=== PATIENT | female | born 1955 | race Caucasian/White ===

== ENCOUNTER 2017-02-18 10:26 | Inpatient (IN) ==
[2017-02-11 13:12] LABS: Appearance,Urine CLEAR; Bilirubin,Urine NEG (NEG); Color,Urine YELLOW; Glucose,Urine (UA) NEGATIVE (NEG); Leukocyte Esterase,Urine NEG /uL (NEG); Nitrate,Urine NEG (NEG); Protein,Urine NEG (NEG); Specific Gravity,Urine 1.016 (1.000-1.035); Urine Blood NEG mg/dL (<0.03); Urobilinogen,Urine NEG (NEG)
[2017-02-11 14:02] LABS: Basophils # (Auto) 0 K/mcL (0.0-0.3); Basophils % (Auto) 0.3 % (0.0-2.0); Eosinophils # (Auto) 0.2 K/mcL (0.0-0.7); Eosinophils % (Auto) 3.8 % (0.0-7.0); Granulocytes % (Auto) 62.5 % (38.0-78.0); Lymphocytes # (Auto) 1.4 K/mcL (1.5-4.8); Lymphocytes % (Auto) 26.5 % (15.5-49.0); Mean Cell Volume 94.5 fL (80.0-100.0); Mean Corpuscular HGB Conc 34.4 g/dL (31.0-36.0); Mean Corpuscular Hemoglobin 32.5 pg (26.0-34.0); Monocytes # (Auto) 0.4 K/mcL (0.1-0.9); Monocytes % (Auto) 6.9 % (1.0-12.0); Platelet Count 239 K/mcL (140-440); RBC 4.31 M/mcL (4.00-5.20); Red Cell Distribution Width 13.2 % (11.5-14.5)
[2017-02-11 14:10] LABS: Blood Urea Nitrogen 14 mg/dl (8-23)
[~2017-02-18 10:26] MED LIST: CELECOXIB 200 MG CAPSULE PO SCH; KETOROLAC 30 MG, ROPIVACAINE HCL/PF 49.5 ML, EPINEPHrine 0.5 MG, 0.9 % SODIUM CHLORIDE ... IJ ONE; PREGABALIN 75 MG CAPSULE PO SCH; ceFAZolin 1 GM VIAL IV SCH; oxyCODONE 10 MG TAB.ER.12H PO SCH
[2017-02-18] MEDS ORDERED: GENTAMICIN SULFATE 800 MG/20 ML VIAL IR ONE (15:57)
[2017-02-18] MEDS ORDERED: GLYCOPYRROLATE 0.2 MG/ML VIAL IV ONE (16:15)
[2017-02-18] MEDS ORDERED: ePHEDrine 50 MG/ML AMPUL IV ONE (16:15)
[2017-02-18] MEDS ORDERED: PROPOFOL 200 MG/20 ML VIAL IV ONE (16:15)
[2017-02-18] MEDS ORDERED: BUPIVACAINE PF 0.5% 30 ML VIAL IJ ONE (16:15)
[2017-02-18] MEDS ORDERED: ONDANSETRON 4 MG/2 ML VIAL IV ONE (16:15)
[2017-02-18] MEDS ORDERED: TRANEXAMIC ACID 1,000 MG/10 ML VIAL IV ONE ×2 (16:15→18:02)
[2017-02-18] MEDS ORDERED: DEXAMETHASONE 10 MG/ML VIAL IV ONE (16:15)
[2017-02-18] MEDS ORDERED: LIDOCAINE HCL/PF 100 MG/5 ML SYRINGE IV ONE (16:15)
[2017-02-18] MEDS ORDERED: MIDAZOLAM 2 MG/2 ML VIAL IV ONE (16:15)
[2017-02-18] MEDS ORDERED: ONDANSETRON ODT 4 MG TABLET SL PRN (18:02)
[2017-02-18] MEDS ORDERED: BISACODYL 10 MG SUPP.RECT PR PRN (18:02)
[2017-02-18] MEDS ORDERED: FLEETS ADULT ENEMA PR PRN (18:02)
[2017-02-18] MEDS ORDERED: HYDROmorphone 2 MG/ML SYRINGE IV PRN (18:02)
[2017-02-18] MEDS ORDERED: MAGNESIUM HYDROXIDE 30 ML ORAL.SUSP PO PRN (18:02)
[2017-02-18] MEDS ORDERED: ACETAMINOPHEN 325 MG TABLET PO PRN (18:02)
[2017-02-18] MEDS ORDERED: BENZOCAINE/MENTHOL 1 LOZENGE PO PRN (18:02)
[2017-02-18] MEDS ORDERED: POLYETHYLENE GLYCOL 3350 17 GM PACKET PO PRN (18:02)
[2017-02-18] MEDS ORDERED: METHOCARBAMOL 750 MG TABLET PO PRN (18:02)
[2017-02-18] MEDS ORDERED: HYDROcodone/APAP 10/325MG TABLET PO PRN (18:02)
[2017-02-18] MEDS ORDERED: ONDANSETRON 4 MG/2 ML VIAL IV PRN ×2 (18:02→18:25)
--- NOTE | 2017-02-18 18:02 | Brief Operative Note ---
Date of procedure: 02/18/17 Pre-op diagnosis: left knee oa Post-op diagnosis: same Procedure: left total knee arthroplasty Grafts/Implants: Yes Anesthesia: spinal Complications: none Surgeon: Shay Benavidez Marketing Professor: Laura White Estimated blood loss (cc): 150 Tourniquet Time (Minutes): 62 Specimens Removed/Pathology: none sent Condition: stable Disposition: PACU
[2017-02-18] MEDS ORDERED: fentaNYL 100 MCG/2 ML VIAL IV PRN (18:25)
[2017-02-18] MEDS ORDERED: IPRATROPIUM/ALBUTEROL 3 ML AMPUL.NEB NEB PRN (18:25)
[2017-02-18] MEDS ORDERED: METHOCARBAMOL 1,000 MG/10 ML VIAL IV PRN (18:25)
[2017-02-18] MEDS ORDERED: ATROPINE SULFATE 0.4 MG/ML VIAL IV PRN (18:25)
[2017-02-18] MEDS ORDERED: METOPROLOL TARTRATE 5 MG/5 ML VIAL IV PRN (18:25)
[2017-02-18] MEDS ORDERED: ACETAMINOPHEN 1,000 MG/100 ML BOTTLE IV ONE (18:25)
[2017-02-18] MEDS ORDERED: FLUMAZENIL 0.1 MG/ML ML IV PRN (18:25)
[2017-02-18] MEDS ORDERED: LABETALOL 5 MG/ML ML IV PRN (18:25)
[2017-02-18] MEDS ORDERED: ePHEDrine 50 MG/ML AMPUL IV PRN (18:25)
[2017-02-18] MEDS ORDERED: NALOXONE HCL 0.4 MG/ML VIAL IV PRN (18:25)
[2017-02-18] MEDS ORDERED: diphenhydrAMINE 50 MG/ML VIAL IV PRN (18:25)
[2017-02-18] MEDS ORDERED: LACTATED RINGERS 1,000 ML IV SCH (18:30)
[2017-02-18] MEDS: 0.9 % SODIUM CHLORIDE 1,000 ML IV SCH ×2 (19:32→19:33)
[2017-02-18] MEDS ORDERED: SENNOSIDES 1 TABLET PO SCH (21:00)
[2017-02-18] MEDS: ceFAZolin 1 GM VIAL IV SCH (21:30)
[2017-02-18] MEDS: DOCUSATE SODIUM 100 MG CAPSULE PO SCH (21:30)
[2017-02-18] MEDS: ASPIRIN 325 MG ENTERIC COATED TABLET PO SCH (21:30)
[2017-02-18] MEDS: 0.9 % SODIUM CHLORIDE 10 ML SYRINGE IV SCH (21:30)
[2017-02-18] MEDS: KETOROLAC 15 MG/ML VIAL IV SCH (23:31)
[2017-02-19] MEDS: 0.9 % SODIUM CHLORIDE 1,000 ML IV SCH ×2 (04:11→04:30)
[2017-02-19] MEDS: KETOROLAC 15 MG/ML VIAL IV SCH (06:27)
[2017-02-19] MEDS: 0.9 % SODIUM CHLORIDE 10 ML SYRINGE IV SCH (06:27)
[2017-02-19] MEDS: ceFAZolin 1 GM VIAL IV SCH (06:27)
--- NOTE | 2017-02-19 06:28 | XRay Report ---
CLINICAL INFORMATION: Post-Op Total Knee COMPARISON: None. FINDINGS: Total knee prostheses is anatomically aligned. No osseous abnormality. Periarticular gas and soft tissue swelling seen. IMPRESSION: Negative Interpreted and Authenticated by: Shay Meyer 02/19/17
--- NOTE | 2017-02-19 07:07 | Discharge Summary ---
Providers - Providers Patient information: Note initiated : 02/19/17 at 7:05 am Service Date, if different from initiated Date: [] Patient: Mandy Mayfield 61 y/o F admitted on 02/18/17 for Total Knee Arthroplasty - Left. Chief Complaint: [POD #1 s/p left TKA Patient doing very well. Ambulating okay. Denies numbness, tingling, calf pain, SOB or CP. Has no questions or concerns this morning.] Discharge date: 02/19/17 Hospitalization Hospital course: Patient was brought to the OR 02/18/17 for a left TKA. Operation was successful without events. She was admitted overnight for pain control and observation. She will discharge to home today and follow up in office in 2 weeks for postop appointment. Discharge diagnosis: knee osteoarthritis Exam - Exam Incision healing: Yes Incision draining: No Incision red: No Incision swollen: No Incision inflamed: No Clean and dry: Yes Weight bearing status: as tolerated (with assistive device) Range of motion: 0/50deg knee ROM. Ankles/feet b/l full AROM and strength. Ortho Discharge - TKA - Patient Instructions Diet: Regular Diet Activity: activity as tolerated, ambulate with assistive device, weight bearing as tolerated Total Knee Protocol: For Total Knee: Start ROM GAGE with stationary bike or rocking chair. Work on gaining full extension of knee. Posterior dislocation precautions provided. Hip abductor strengthening and gait training instructions provided. Apply Cryocuff as instructed. Dressing Care: May shower in 2 days, Aquacel Ag - leave on for 5 days - Follow Up Plan Follow Up Appointments: Shay Benavidez MD [Physician] - Disposition: Home, Self-Care Prognosis: Fair Rehab Potential: Fair Overall status at discharge: patient is progressing back to baseline - Orders For Discharge Prescriptions: Aspirin [Ecotrin] 325 mg PO BID #60 tab.ec HYDROcodone/APAP 10/325MG [[place] 10/325Mg] 1 - 2 tab PO Q4HP PRN #60 tab PRN Reason: Pain Level 3-6 Additional Discharge Orders: Physical Therapy at Discharge - TKA Location: Determined By Patient Walker Location: Determined By Patient Pending Studies Resuscitation Status Full Code Diet Regular Diet Start FriFeb 18 Dinner Aspirin (Ecotrin) 325 mg PO BID BEENA Last Admin: 02/18/17 21:30 Dose: 325 mg Docusate Sodium (Colace) 100 mg PO BID [facility] Last Admin: 02/18/17 21:30 Dose: 100 mg Hydromorphone HCl (Dilaudid) 0 mg IV Q2HP PRN PRN Reason: PAIN LEVEL > 6 Last Admin: 02/18/17 22:54 Dose: 0.5 mg Sodium Chloride (Sodium Chloride 0.9%) 1,000 mls @ 125 mls/hr IV .Q8H [facility] Last Admin: 02/19/17 04:30 Dose: 125 mls/hr Infusion: 02/19/17 03:32 Dose: 125 mls/hr Admin: 02/18/17 19:33 Dose: Admin: 02/18/17 19:32 Dose: 125 mls/hr Ketorolac Tromethamine (Toradol) 15 mg IV Q6 [facility] Stop: 02/20/17 18:01 Last Admin: 02/19/17 06:27 Dose: 15 mg Admin: 02/18/17 23:31 Dose: 15 mg Senna (Senokot) 2 tab PO HS [facility] Last Admin: 02/18/17 21:30 Dose: 2 tab Sodium Chloride (Saline Flush) 10 ml IV Q8 [facility] Last Admin: 02/19/17 06:27 Dose: 10 ml Admin: 02/18/17 21:30 Dose: 10 ml Shift Summary 02/19/17 04:00 Shift Summary by Cyn Garces A&O. Hx of HTN, arthritis, GERD. Returned to floor at about 1900. Dressing to L knee CDI. The RACHELE wrap was changed after patient was incontinent of urine, afterwards she voided 150ml w/ PVR of <30ml. Has been voiding 50-150ml (but has also been missing the hat) w/ PVRs of <30ml each time. Has been incontinent of urine x2 tonight. Patient reports she does have a hx of incontinence but typically only when she sneezes/coughs or after she takes her diuretic. Patient allergic to codeine. Gave 0.5mg dilaudid x1 for 6/10 pain with good results. IV in L wrist SL. VSS on 2L via NC. Pleasant and cooperative with all cares. Initialized on 02/19/17 04:00 - END OF NOTE Exam Vital signs: Temp Pulse Resp BP Pulse Ox 97.5 F 92 H 12 138/76 94 02/19/17 04:00 02/19/17 04:00 02/19/17 04:00 02/19/17 04:00 02/19/17 04:00 Constitutional: well developed, well nourished, no acute distress Respiratory: no intercostal retractions or use of accessory muscles Cardiovascular: other (DP/PT pulses 2+ b/l. Cap refill < 3 sec b/l. ) Skin: other (dressing CDI without drainage/erythema) Neurologic: sensation intact to touch, other (b/l LE NVI)
--- NOTE | 2017-02-19 07:08 | Operative Note ---
DATE OF OPERATION: 02/18/2017 PREOPERATIVE DIAGNOSIS: Degenerative joint disease, left knee. POSTOPERATIVE DIAGNOSIS: Degenerative joint disease, left knee. PROCEDURE: Left total knee arthroplasty. SURGEON: Luci Benavidez M.D. PLANT TECHNICIAN/CONTROL ROOM OPERATOR SURGEON: Laura White PA-C ANESTHESIA: Spinal with LMA assist. ESTIMATED BLOOD LOSS: 150 mL COMPLICATIONS: None noted. SPECIMENS REMOVED: None. DRAINS: None. TOURNIQUET TIME: 62 minutes at 250 mmHg IMPLANTS: DePuy CMW2 bone cement x4, 20 grams; DePuy Attune femoral posterior stabilized size 5 left cemented; DePuy Attune tibial insert fixed bearing posterior stabilized size 5, 10 mm AOX; DePuy Attune tibial based fixed bearing size 4 cemented; DePuy Attune patella medialized dome 35 mm cemented AOX. INDICATIONS: The patient has had a long-standing history of worsening pain in the knee that has failed conservative treatment. Radiographs have confirmed advanced degenerative joint disease. After a long discussion about treatment options, the patient elected to proceed with a knee arthroplasty. The risks and benefits were discussed with the patient in detail including, but not limited to, the risks of anesthesia, problems with the heart or lungs related to anesthesia, infection, compromise or injury to the nerves and blood vessels, deep venous thrombosis, pulmonary embolism, pneumonia, continued pain after surgery, worsening pain or symptoms after surgery, swelling, loss of motion, instability, leg length discrepancy, and need for repeat surgery. DESCRIPTION OF PROCEDURE: The patient was seen in the pre-anesthesia waiting room where all questions were answered and the correct side and site were identified and marked. The patient was transferred to the operating room and administered the anesthetic and given pre-operative antibiotics. A time-out was then called. The extremity was prepped and draped, exsanguinated, and the tourniquet was inflated to 300 mmHg. A midline skin incision was then made with a standard medial parapatellar arthrotomy. Debridement of the menisci, ACL, and PCL was performed followed by balancing releases in the medial lateral plane. We then established intramedullary access to both the femur and tibia in a standard fashion. The femoral guide ashish was initially placed with the distal femoral guide, pinned into place, and the distal femoral cut was performed and checked with a flat plate. We then turned our attention to the tibia. The intramedullary guide was placed with the proximal tibial cutting block. The block was appropriately positioned off the affected side, varus and valgus was checked with the extra-medullary guide, and the block was pinned into place. The proximal tibial cut was performed and the tibia was prepared for the tibial implant with appropriate rotation. The tibia, femur, and posterior compartment were debrided of osteophytes, loose bodies, and meniscal fragments We then used the gap balancing technique to balance extension with the first two cuts and good balancing was obtained with a 10 millimeter gap block. We turned our attention back to the femur and used the referencing block and implant to size appropriately. Using the gap balancing technique for the flexion space we set our rotation of the femur off the tibial cut. Anesthesia gave the patient 1 gram of Tranexamic Acid via an intravenous route. We placed the 4 in 1 cutting block and made anterior, posterior, and chamfer cuts. Box plasty cuts were then made in a standard fashion for the posterior stabilized prosthesis. We then completed osteophyte release and posterior capsule release from the posterior compartment. Trials were placed and we chose the polyethylene insert thickness that provided the best stability in all planes. With the trials in place, we did a measured resection for a resurfacing patella. We sized the patella and placed the patella trial and performed a lateral facetectomy with the saw and rongeur. Good tracking was obtained. We removed all trials, irrigated and dried all cut surfaces. We cemented the components into place including tibia, femur and patella. We placed a trial liner and held the knee in full extension with the patella compressed while the cement cured. We then removed all excess cement and placed the final polyethylene tibiofemoral component. Irrigation with 3 liters of antibiotic saline was then performed using jet-lavage. We let the tourniquet down and coagulated bleeding vessels. We injected a 100 cubic centimeter volume including Ropivacaine 49.25 cubic centimeters at 5 milligrams per cubic centimeter, Ketorolac 30 milligrams, and Epinephrine 0.5 milligrams into 100 cubic centimeters volume of normal saline. We closed the retinaculum with looped #2 Stratafix. We closed the subcutaneous tissue and skin in layers out to luba in the skin. A sterile pressure dressing was applied. All needle and sponge counts were correct. The patient was transferred to the recovery room in stable condition. MISHEL:beka Job ID: [id number] Doc ID: [id number] Luci Benavidez MD
[2017-02-19] MEDS ORDERED: LEVOTHYROXINE 25 MCG TABLET PO SCH (07:30)
[2017-02-19] MEDS ORDERED: LEVOTHYROXINE SODIUM 112 MCG TABLET PO SCH (07:30)
[2017-02-19] MEDS: ASPIRIN 325 MG ENTERIC COATED TABLET PO SCH (08:30)
[2017-02-19] MEDS: DOCUSATE SODIUM 100 MG CAPSULE PO SCH (08:30)
[2017-02-19] MEDS ORDERED: SPIRONOLACTONE 25 MG TABLET PO SCH (09:00)
[2017-02-19] MEDS ORDERED: LOSARTAN 50 MG TABLET PO SCH (09:00)
[2017-02-19] MEDS ORDERED: FENOFIBRATE 43 MG CAPSULE PO SCH (09:00)
[2017-02-19] MEDS ORDERED: FLU VACC QS2017-18 36MOS UP/PF 60 MCG/0.5 ML SYRINGE IM ONE (10:00)
== END 2017-02-19 11:24 | disposition home or self-care (01) | DRG 470 ==
LOC: MEDSUR 10:26
PROVIDERS: ADMIT Orthopaedic Surgery Sports Medicine; ATTEND Orthopaedic Surgery Sports Medicine

== ENCOUNTER 2018-01-20 06:54 | Inpatient (IN) ==
[2018-01-13 15:03] LABS: Appearance,Urine CLEAR; Bilirubin,Urine NEG (NEG); Color,Urine YELLOW; Glucose,Urine (UA) NEGATIVE (NEG); Leukocyte Esterase,Urine NEG /uL (NEG); Protein,Urine NEG (NEG); Specific Gravity,Urine 1.023 (1.000-1.035); Urine Blood NEG mg/dL (<0.03); Urobilinogen,Urine NEG (NEG)
[2018-01-13 16:02] LABS: Basophils # (Auto) 0 K/mcL (0.0-0.3); Basophils % (Auto) 0.4 % (0.0-2.0); Eosinophils # (Auto) 0.2 K/mcL (0.0-0.7); Eosinophils % (Auto) 2.7 % (0.0-7.0); Granulocytes % (Auto) 64.4 % (38.0-78.0); Lymphocytes # (Auto) 1.5 K/mcL (1.5-4.8); Lymphocytes % (Auto) 25.1 % (15.5-49.0); Mean Cell Volume 96.2 fL (80.0-100.0); Mean Corpuscular HGB Conc 33.8 g/dL (31.0-36.0); Mean Corpuscular Hemoglobin 32.5 pg (26.0-34.0); Monocytes # (Auto) 0.5 K/mcL (0.1-0.9); Monocytes % (Auto) 7.4 % (1.0-12.0); Platelet Count 289 K/mcL (140-440); RBC 4.17 M/mcL (4.00-5.20); Red Cell Distribution Width 12.9 % (11.5-14.5)
[2018-01-13 16:11] LABS: Blood Urea Nitrogen 19 mg/dl (8-23)
[2018-01-20] MEDS ORDERED: oxyCODONE 10 MG TAB.ER.12H PO SCH (07:00)
[2018-01-20] MEDS ORDERED: CELECOXIB 200 MG CAPSULE PO SCH (07:00)
[2018-01-20] MEDS ORDERED: PREGABALIN 75 MG CAPSULE PO SCH (07:00)
[2018-01-20] MEDS ORDERED: ceFAZolin 1 GM VIAL IV SCH (07:00)
[2018-01-20] MEDS ORDERED: 0.9 % SODIUM CHLORIDE 9 ML, KETOROLAC 30 MG, ROPIVACAINE HCL/PF 49.5 ML, EPINEPHrine 0.... IJ SCH (07:00)
[2018-01-20] MEDS ORDERED: ROPIVACAINE HCL/PF 20 ML VIAL IJ ONE (09:25)
[2018-01-20] MEDS ORDERED: ONDANSETRON 4 MG/2 ML VIAL IV ONE (09:25)
[2018-01-20] MEDS ORDERED: LIDOCAINE HCL/PF 100 MG/5 ML SYRINGE IV ONE (09:25)
[2018-01-20] MEDS ORDERED: ePHEDrine 50 MG/ML AMPUL IV ONE (09:25)
[2018-01-20] MEDS ORDERED: PROPOFOL 200 MG/20 ML VIAL IV ONE (09:25)
[2018-01-20] MEDS ORDERED: TRANEXAMIC ACID 1,000 MG/10 ML VIAL IV ONE (09:25)
[2018-01-20] MEDS ORDERED: DEXAMETHASONE 10 MG/ML VIAL IV ONE (09:25)
[2018-01-20] MEDS ORDERED: MIDAZOLAM 5 MG/5 ML VIAL IV ONE (09:25)
[2018-01-20] MEDS ORDERED: GENTAMICIN SULFATE 800 MG/20 ML VIAL IR ONE (09:54)
[2018-01-20] MEDS ORDERED: PROMETHAZINE 25 MG/ML VIAL IV PRN (10:49)
[2018-01-20] MEDS ORDERED: MEPERIDINE 25 MG/ML SYRINGE IV PRN (10:49)
[2018-01-20] MEDS ORDERED: ONDANSETRON 4 MG/2 ML VIAL IV PRN ×2 (10:49→10:57)
[2018-01-20] MEDS ORDERED: fentaNYL 100 MCG/2 ML VIAL IV PRN (10:49)
[2018-01-20] MEDS ORDERED: ACETAMINOPHEN 1,000 MG/100 ML BOTTLE IV ONE (10:49)
[2018-01-20] MEDS ORDERED: LACTATED RINGERS 250 ML IV PRN (10:49)
[2018-01-20] MEDS ORDERED: IPRATROPIUM/ALBUTEROL 3 ML AMPUL.NEB NEB PRN (10:49)
[2018-01-20] MEDS ORDERED: diphenhydrAMINE 50 MG/ML VIAL IV PRN (10:49)
[2018-01-20] MEDS ORDERED: BENZOCAINE/MENTHOL 1 LOZENGE PO PRN ×2 (10:49→10:57)
[2018-01-20] MEDS ORDERED: FLUMAZENIL 0.1 MG/ML ML IV PRN (10:49)
[2018-01-20] MEDS ORDERED: NALOXONE HCL 0.4 MG/ML VIAL IV PRN (10:49)
--- NOTE | 2018-01-20 10:56 | Brief Operative Note ---
Date of procedure: 01/20/18 Pre-op diagnosis: right knee osteoarthritis Post-op diagnosis: same Procedure: right total knee arthroplasty Grafts/Implants: Yes Anesthesia: spinal Complications: none Surgeon: Shay Benavidez Chef'S Assistant: Laura White Estimated blood loss (cc): 150 Tourniquet Time (Minutes): 56 Specimens Removed/Pathology: none sent Condition: stable Disposition: PACU
[2018-01-20] MEDS ORDERED: ONDANSETRON ODT 4 MG TABLET SL PRN (10:57)
[2018-01-20] MEDS ORDERED: POLYETHYLENE GLYCOL 3350 17 GM PACKET PO PRN (10:57)
[2018-01-20] MEDS ORDERED: BISACODYL 10 MG SUPP.RECT PR PRN (10:57)
[2018-01-20] MEDS ORDERED: ACETAMINOPHEN 325 MG TABLET PO PRN (10:57)
[2018-01-20] MEDS ORDERED: MAGNESIUM HYDROXIDE 30 ML ORAL.SUSP PO PRN (10:57)
[2018-01-20] MEDS ORDERED: TRANEXAMIC ACID 1,000 MG/10 ML VIAL IV SCH (10:57)
[2018-01-20] MEDS ORDERED: FLEETS ADULT ENEMA PR PRN (10:57)
[2018-01-20] MEDS ORDERED: METHOCARBAMOL 750 MG TABLET PO PRN (10:57)
[2018-01-20] MEDS ORDERED: LACTATED RINGERS 1,000 ML IV SCH (11:00)
--- NOTE | 2018-01-20 11:23 | Operative Note ---
DATE OF OPERATION: 01/20/2018 PREOPERATIVE DIAGNOSIS: Degenerative joint disease, right knee. POSTOPERATIVE DIAGNOSIS: Degenerative joint disease, right knee. PROCEDURE: Right total knee arthroplasty. SURGEON: Luci Benavidez M.D. RUSTIC FENCE BUILDER SURGEON: Laura White PA-C ANESTHESIA: Spinal with LMA assist. ESTIMATED BLOOD LOSS: 150 mL COMPLICATIONS: None noted. SPECIMENS REMOVED: None. DRAINS: None. TOURNIQUET TIME: 56 minutes at 300 mmHg. IMPLANTS: DePuy Attune tibial system fixed bearing size 4 cemented, DePuy Attune femoral posterior stabilized size 5 right cemented, DePuy patella medialized dome 35 mm cemented AOX, DePuy Attune tibial insert fixed bearing posterior stabilized size 5, 7 mm AOX, DePuy CMW2 bone cement 20 grams x4. INDICATIONS: The patient has had a long-standing history of worsening pain in the knee that has failed conservative treatment. Radiographs have confirmed advanced degenerative joint disease. After a long discussion about treatment options, the patient elected to proceed with a knee arthroplasty. The risks and benefits were discussed with the patient in detail including, but not limited to, the risks of anesthesia, problems with the heart or lungs related to anesthesia, infection, compromise or injury to the nerves and blood vessels, deep venous thrombosis, pulmonary embolism, pneumonia, continued pain after surgery, worsening pain or symptoms after surgery, swelling, loss of motion, instability, leg length discrepancy, and need for repeat surgery. DESCRIPTION OF PROCEDURE: The patient was seen in the pre-anesthesia waiting room where all questions were answered and the correct side and site were identified and marked. The patient was transferred to the operating room and administered the anesthetic and given pre-operative antibiotics. A time-out was then called. The extremity was prepped and draped, exsanguinated, and the tourniquet was inflated to 300 mmHg. A midline skin incision was then made with a standard medial parapatellar arthrotomy. Debridement of the menisci, ACL, and PCL was performed followed by balancing releases in the medial lateral plane. We then established intramedullary access to both the femur and tibia in a standard fashion. The femoral guide ashish was initially placed with the distal femoral guide, pinned into place, and the distal femoral cut was performed and checked with a flat plate. We then turned our attention to the tibia. The intramedullary guide was placed with the proximal tibial cutting block. The block was appropriately positioned off the affected side, varus and valgus was checked with the extra-medullary guide, and the block was pinned into place. The proximal tibial cut was performed and the tibia was prepared for the tibial implant with appropriate rotation. The tibia, femur, and posterior compartment were debrided of osteophytes, loose bodies, and meniscal fragments We then used the gap balancing technique to balance extension with the first two cuts and good balancing was obtained with a 10 millimeter gap block. We turned our attention back to the femur and used the referencing block and implant to size appropriately. Using the gap balancing technique for the flexion space we set our rotation of the femur off the tibial cut. Anesthesia gave the patient 1 gram of Tranexamic Acid via an intravenous route. We placed the 4 in 1 cutting block and made anterior, posterior, and chamfer cuts. Box plasty cuts were then made in a standard fashion for the posterior stabilized prosthesis. We then completed osteophyte release and posterior capsule release from the posterior compartment. Trials were placed and we chose the polyethylene insert thickness that provided the best stability in all planes. With the trials in place, we did a measured resection for a resurfacing patella. We sized the patella and placed the patella trial and performed a lateral facetectomy with the saw and rongeur. Good tracking was obtained. We removed all trials, irrigated and dried all cut surfaces. We cemented the components into place including tibia, femur and patella. We placed a trial liner and held the knee in full extension with the patella compressed while the cement cured. We then removed all excess cement and placed the final polyethylene tibiofemoral component. Irrigation with 3 liters of antibiotic saline was then performed using jet-lavage. We let the tourniquet down and coagulated bleeding vessels. We injected a 100 cubic centimeter volume including Ropivacaine 49.25 cubic centimeters at 5 milligrams per cubic centimeter, Ketorolac 30 milligrams, and Epinephrine 0.5 milligrams into 100 cubic centimeters volume of normal saline. We closed the retinaculum with #2 Stratafix and #0 Vicryl. We closed the subcutaneous tissue and skin out to Dermabond on the skin. A sterile pressure dressing was applied. All needle and sponge counts were correct. The patient was transferred to the recovery room in stable condition. MISHEL:beka Job ID: [id number] Doc ID: [id number] Luci Benavidez MD
--- NOTE | 2018-01-20 11:46 | XRay Report ---
HISTORY: Postop knee replacement FINDINGS: There is a well-positioned right total knee prosthesis. No fracture is present and there are no abnormal soft tissue calcifications. IMPRESSION: Well-positioned right knee prosthesis Interpreted and Authenticated by: Jacob Ceballos 01/20/18
[2018-01-20] MEDS: 0.9 % SODIUM CHLORIDE 1,000 ML IV SCH ×2 (13:47→21:07)
[2018-01-20] MEDS: KETOROLAC 15 MG/ML VIAL IV SCH ×2 (13:48→17:24)
[2018-01-20] MEDS: 0.9 % SODIUM CHLORIDE 10 ML SYRINGE IV SCH (15:37)
[2018-01-20] MEDS: ceFAZolin 1 GM VIAL IV SCH (17:24)
[2018-01-20] MEDS ORDERED: LOSARTAN 50 MG TABLET PO SCH (21:00)
[2018-01-20] MEDS ORDERED: SENNOSIDES 1 TABLET PO SCH (21:00)
[2018-01-20] MEDS ORDERED: SPIRONOLACTONE 25 MG TABLET PO SCH (21:00)
[2018-01-20] MEDS: DOCUSATE SODIUM 100 MG CAPSULE PO SCH (21:19)
[2018-01-20] MEDS: ASPIRIN 325 MG ENTERIC COATED TABLET PO SCH (21:19)
[2018-01-20] MEDS: HYDROcodone/APAP 10/325MG TABLET PO PRN (21:27)
[2018-01-21] MEDS: 0.9 % SODIUM CHLORIDE 10 ML SYRINGE IV SCH ×2 (00:30→05:29)
[2018-01-21] MEDS: KETOROLAC 15 MG/ML VIAL IV SCH ×3 (00:39→11:51)
[2018-01-21] MEDS: ceFAZolin 1 GM VIAL IV SCH (01:11)
[2018-01-21] MEDS: HYDROcodone/APAP 10/325MG TABLET PO PRN ×2 (04:54→11:50)
[2018-01-21] MEDS: 0.9 % SODIUM CHLORIDE 1,000 ML IV SCH ×2 (05:15→11:54)
[2018-01-21] MEDS ORDERED: LEVOTHYROXINE 125 MCG TABLET PO SCH (07:30)
--- NOTE | 2018-01-21 07:51 | Orthopedic Progress Note ---
Subjective Patient information: Note initiated : 01/21/18 at 7:48 am Service Date, if different from initiated Date: [] Patient: Mandy Mayfield 62 y/o F admitted on 01/20/18 for Right Total Knee Arhroplasty. Chief Complaint: [] Interval history: doing well. no complaints Objective Vital signs: Vital Signs Temp Pulse Resp BP Pulse Ox 01/21/18 07:37 97.8 F 20 101/57 97 01/21/18 04:00 98.0 F 97 H 14 103/57 96 01/21/18 00:00 98.4 F 95 H 14 101/61 95 01/20/18 20:00 97.7 F 99 H 14 108/63 92 01/20/18 15:00 83 01/20/18 14:06 83 107/64 93 01/20/18 13:51 90 102/61 92 01/20/18 13:36 92 H 120/68 94 01/20/18 13:21 95 H 113/66 97 01/20/18 13:17 94 H 124/71 94 01/20/18 12:51 89 114/67 95 01/20/18 12:36 85 118/69 95 01/20/18 12:21 90 116/72 94 01/20/18 12:06 123/70 91 01/20/18 11:59 97.5 F 91 H 14 146/67 96 01/20/18 11:44 93 H 18 104/55 96 01/20/18 11:29 90 12 129/51 96 01/20/18 11:25 78 14 99/52 97 01/20/18 11:20 80 18 98/50 95 01/20/18 11:14 97.4 F 80 15 118/49 97 01/20/18 08:00 97.7 F 70 16 132/70 98 Intake and Output 01/20/18 01/21/18 01/21/18 21:59 05:59 13:59 Intake Total 400 / 400 1300 / 1300 Output Total 850 / 850 1100 / 1100 Balance -450 / -450 200 / 200 Intake: IV 1000 / 1000 Sodium Chloride 0.9% 1,000 ml @ 1000 / 1000 125 mls/hr IV .Q8H [facility] Rx#: [id number] Oral 400 / 400 300 / 300 Output: Void Amount 850 / 850 1100 / 1100 Other: Meal Dinner Percent of Meal Consumed 100% Feeding Ability Assist with Tray Set Up Urine Appearance Clear Clear Urine Color Bright Yellow Straw Urine Odor Normal Normal # Voids 1 Weight 227 lb Intake & Output: Intake & Output 01/20/18 01/21/18 01/21/18 21:59 05:59 13:59 Intake Total 400 / 400 1300 / 1300 Output Total 850 / 850 1100 / 1100 Balance -450 / -450 200 / 200 Weight 227 lb Intake: IV 1000 / 1000 Sodium Chloride 0.9% 1,000 ml @ 1000 / 1000 125 mls/hr IV .Q8H [facility] Rx#: [id number] Oral 400 / 400 300 / 300 Output: Void Amount 850 / 850 1100 / 1100 Other: Meal Dinner Percent of Meal Consumed 100% Feeding Ability Assist with Tray Set Up Urine Appearance Clear Clear Urine Color Bright Yellow Straw Urine Odor Normal Normal # Voids 1 Incision: Yes healing Incision clean and dry: Yes Dressing: Yes clean, Yes dry, Yes intact Weight bearing status: full Neurological exam IM: Yes alert, Yes normal gait, Yes oriented X3, Yes motor sensory intact, Yes neurovascular intact Extremities exam IM: No calf tenderness, Yes Foot pink and warm, Yes neurovascular intact - Labs CBC & BMP: 01/21/18 04:39 01/13/18 13:41 Labs: Orthopedic Labs 01/13/18 13:41 PT 13.6 INR 1.0 APTT 30 01/21/18 01/13/18 04:39 13:41 Hgb 10.1 L 13.6 Hct 29.3 L 40.1 Assessment and Plan (1) Knee osteoarthritis pod 1 s/p tka wbat pain control dvt prophylaxis d/c planning - home today Status: Acute
--- NOTE | 2018-01-21 07:52 | Discharge Summary ---
Ortho Discharge - TKA - Patient Instructions Diet: Regular Diet Activity: activity as tolerated, ambulate with assistive device, weight bearing as tolerated Total Knee Protocol: For Total Knee: Start ROM GAGE with stationary bike or rocking chair. Work on gaining full extension of knee. Posterior dislocation precautions provided. Hip abductor strengthening and gait training instructions provided. Apply Cryocuff as instructed. Dressing Care: May shower in 2 days, Other (keep dermabond in place and covered) - Problem Maintenance (1) Knee osteoarthritis Status: Acute - Follow Up Plan Follow Up Appointments: Laura White PA-C [Physician Electronics Technician Apprentice] - 02/04/18 8:40 am Disposition: Home, Self-Care Prognosis: Good Rehab Potential: Good I certify that the patient requires SNF services: No Overall status at discharge: patient is progressing back to baseline
[2018-01-21] MEDS ORDERED: FENOFIBRATE 43 MG CAPSULE PO SCH (09:00)
[2018-01-21] MEDS: DOCUSATE SODIUM 100 MG CAPSULE PO SCH (09:18)
[2018-01-21] MEDS: ASPIRIN 325 MG ENTERIC COATED TABLET PO SCH (09:18)
== END 2018-01-21 13:30 | disposition home or self-care (01) | DRG 470 ==
LOC: MEDSUR 06:54
PROVIDERS: ADMIT Orthopaedic Surgery Sports Medicine; ATTEND Orthopaedic Surgery Sports Medicine
CPT/HCPCS: 62322; 90686; 97161; 97166; C1776; J0131; J0690; J1100; J1580; J1885; J2001; J2250; J2405; J2795; J7030; J7120